=== PATIENT | female | born 1980 | race Caucasian/White ===

== ENCOUNTER 2018-05-13 08:14 | Day surgery (SDC) | payer BC ==
[2018-05-06 14:06] VITALS: BMI 23.3
[2018-05-13 09:02] LABS: BASO % 0.5 % (0.0-2.0); EOS # 0.1 K/uL (0.0-0.7); EOS % 2.1 % (0.0-4.0); HEMOGLOBIN 12.7 g/dL (12.0-16.0); LYMPH # 1.8 K/uL (1.0-4.3); LYMPH % 26.2 % (20.0-40.0); MEAN CELL VOLUME 78.8 fl (81.0-99.0); MEAN CORPUSCULAR HEMOGLOBIN 24.4 pg (27.0-31.0); MEAN PLATELET VOLUME 7.6 fl (7.2-11.7); MONO # 0.5 K/uL (0.0-0.8); MONO % 7.5 % (0.0-10.0); NEUT # 4.4 K/uL (1.8-7.0); NEUT % 63.7 % (50.0-75.0); NRBC % 0.1 % (0.0-0.0); RBC 5.2 Mil/uL (3.80-5.20); RED CELL DISTRIBUTION WIDTH 13.7 % (11.5-14.5); WHITE BLOOD COUNT 6.9 K/uL (4.8-10.8)
[2018-05-13 09:08] VITALS: RESP 18
[2018-05-13] MEDS ORDERED: Dexamethasone 4 mg/1 ml ONE (09:54)
[2018-05-13] MEDS ORDERED: Lidocaine 4% (Laryng-O-Jet) Kit MM ONE (09:55)
[2018-05-13] MEDS ORDERED: Phenylephrine 10 mg/ml Inj ONE ×2 (09:55→09:58)
[2018-05-13] MEDS ORDERED: Propofol 10 mg/ml Inj (20 ML) ONE (09:55)
[2018-05-13] MEDS ORDERED: Succinylcholine 200 mg/10 ml Inj IV ONE (09:55)
[2018-05-13] MEDS ORDERED: Rocuronium 10 mg/ml (5 ml) ONE (09:55)
[2018-05-13] MEDS ORDERED: Lactated Ringer's 1,000 ML IV ONE ×4 (10:50→12:34)
[2018-05-13] MEDS ORDERED: Midazolam 2 MG/2 ML VIAL ONE (10:58)
[2018-05-13] MEDS: Bupivacaine HCl 0.5% PF (30 ml) Inj ONE ×2 (11:30→11:35)
[2018-05-13] MEDS ORDERED: Neostigmine 1:1000 (1 mg/ml) Inj ONE (12:10)
[2018-05-13] MEDS ORDERED: Oxycodone/Acetaminophen 5/325 mg Tab PO PRN ×2 (12:56)
[2018-05-13] MEDS ORDERED: Lactated Ringer's 1,000 ML IV SCH ×2 (13:00→13:15)
[2018-05-13 15:11] VITALS: O2SAT 100
--- NOTE | 2018-05-13 15:13 | OP ---
PROCEDURE DATE: 05/30/2018 SURGEON: Anderson Felder MD BAKER: N/A ANESTHESIOLOGIST: Riaz Esqueda MD TYPE OF ANESTHESIA: General endotracheal. PREOPERATIVE DIAGNOSES: 1. pelvic pain. 2. abdominal pain. 3. rule out pelvic endometriosis POSTOPERATIVE DIAGNOSES: 1. pelvic pain. 2. abdominal pain. 3. rule out pelvic endometriosis PROCEDURES PERFORMED: 1. Exam under anesthesia. 2. Video assisted hysteroscopy. 3. Cystoscopy. 4. Bilateral ureteral catheterization and injection of IC-Green dye. 5. Robotic da Arthur operative laparoscopy. 6. Treatment of endometriosis. 7. Excision of endometriosis. 8. Bilateral ureterolysis. COMPLICATIONS: None. SAMPLES SENT: 1. Left Uterosacral l endometriosis. 2. Left periureteral endometriosis. 3. Right periureteral endometriosis. 4. Right uterosacral endometriosis. INDICATION FOR THE PROCEDURE AND CONSENT: The patient had a long history of pelvic pain, dysmenorrhea, dyspareunia, abdominal pain, and bladder pain. The patient had been thoroughly evaluated and counseled regarding the pros and cons of the procedure, the reasonable alternatives, and possible complications. She understood and accepted the risks involved. Literature was provided to the patient. The patient was understanding and given her history and per surgical exam, she was at high risk in an average patient. She accepted all the risks involved, and all the questions had been answered to her satisfaction. FINDINGS OF SURGERY: Genitalia: Normal external genitalia, cervix without lesion and polyps. Hysteroscopy: Hysteroscopy shows a clear uterine cavity with no polyps or masses noticed. Cystoscopy: The cystoscopy was performed to rule out endometriosis and also any interstitial cystitis and also injury. The bladder was normal with no evidence of stone, trigonitis, or cystitis. A positive jet flow was identified in both ureters. Laparoscopy: The upper abdomen appeared to be normal. Gallbladder was normal. Liver edges appeared to be normal. Ascending colon and transverse were normal. There was evidence of mild adhesions, fibrosis, and endometriosis of the rectovaginal and pelvic sidewalls. . Both fallopian tubes appeared to be patent. DESCRIPTION OF THE PROCEDURE: Initiation of the case: After adequate anesthesia was obtained, the patient was placed in the dorsal lithotomy position, and with extreme care, placement of the patient with hyperextension and hyperflexing of the hips. At this point, the patient was prepped and draped. The surgeon was gowned and gloved. A timeout was taken according to the hospital procedure and the procedure was started. At this point, we performed cystoscopy, bilateral ureteral catheterization. A cystoscope was inserted into the bladder under direct visualization and the bladder was visualized. The bladder was free of lesions and tumors. There was no evidence of interstitial cystitis, and there was only mild amount of trigonitis. At this point, both ureters were identified and appeared to be in their normal anatomical position. At this point, utilizing an open 5-Latvian open-ended catheter, the left ureter was catheterized all the way to the distal ureter, and 5 mL of IC-Green was injected into this ureter. Similarly, the contralateral ureter was catheterized all the way to the distal ureter, and 5 mL of IC-Green was injected into the distal ureter. At this point, the stents were removed, and the cystoscope was removed, and the 16-Latvian Hendrix was inserted into the bladder. At this point, we proceeded with a hysteroscopy. A speculum was placed into vagina, and the anterior lip of the cervix was grasped. The cervix was dilated, and a hysteroscope was inserted into the cavity. The cavity appeared to be of normal size with no evidence of polyps, cysts, adenomyosis, or fibroids. A gentle dand c was performed for edometrial sampling At this point, we proceeded with placement of a trocar and docking of the da Arthur Xi robot. The surgeon was re-gowned and gloved, and open laparoscopy was performed by making incision in the umbilicus and the fascia was incised. The peritoneum was entered in a blunt fashion, and the cannula was inserted under direct visualization. The abdomen was insufflated, and under direct visualization, three additional ports were inserted in the left upper quadrant, left mid quadrant, and right upper quadrant. At this point, the da Arthur Xi robot was brought into the field and docked, and the instruments were inserted under direct visualization. All this with extreme care not to injure the bowel or another area. As per dictation, the upper abdomen appeared to be normal with no evidence of any lesions. At this point, we proceeded with a left ureterolysis. The ureter appeared to be dilated and was clearly identified utilizing IC-Green fluorescent technology. Anesthesia was made in the peritoneum at the top of the pelvic brim, and the incision was then carried down all the way opening the peritoneum all the way down from the pelvic brim, all the way down to the ovarian fossa, extending the incision below the ovary.The peritoneum which had been opened, was excised, and sent to pathology. At this point, we proceeded with a right ureterolysis. The ureter was identified again utilizing fluorescent technology on the right hand side and retroperitoneal space was entered, and a full dissection was performed,entering the retroperitoneal space and dissecting the ureter, removing the ureter laterally and the peritoneum medially. A full dissection was performed all the way down to the ovarian fossa and the crossing of the uterine arteries. An area of peritoneum containing endometriosis was dissected and sent to Pathology. At this point, we proceeded with a right ovariolysis. The right ovary was adherent to the peritoneum. It was gently elevated progressively, and dissected off from the peritoneal area. All this done with extreme care to preserve vascularization to the ovary. At this point, we proceeded with treatment of endometriosis and excision of endometriosis. On the left hand side, fibrosis, especially in the left ovarian fossa was excised. In a very progressive step by step fashion, we dissected off fibrosis containing endometriosis and freed up the whole area. At this point, it was checked for hemostasis and appeared to be excellent. Both fallopian tubes were in good condition and patent. At this point we proceeded with destruction of inflammatory areas utilizing the j-plasma energy device. At this point, the da Arthur Xi robot was removed. The abdomen was desufflated, and the incisions were closed in layers with 0 PDS for the fascia and 4-0 Monocryl for the skin. At the end of the procedure, all tips and instrument counts were correct. The patient tolerated the procedure well and was taken to the recovery room in excellent condition. Bradford PIZARRO, Anderson JORDAN
[2018-05-13] MEDS ORDERED: Acetaminophen IV IVPB ONE ×2 (17:10)
[2018-05-13 18:04] VITALS: BP 102/69; PULSE 60; TEMP 97.6
== END 2018-05-13 18:35 | disposition home or self-care (01) ==
LOC: H.OPSURG 08:14
PROVIDERS: ATTEND Obstetrics & Gynecology Reproductive Endocrinology
DX: N80.8 Other endometriosis (principal); E03.9 Hypothyroidism, unspecified
CPT/HCPCS: 36415; 52332; 58100; 58662; 85025; 86850; 86900; 88305; C1729; J0131; J0330; J0690; J1100; J1885; J2001; J2250; J2370; J2405; J2704; J2710; J2765; J3010; J7030; J7120